=== PATIENT | female | born 1985 | race Caucasian/White ===

== ENCOUNTER 2017-06-11 00:25 | Emergency (ER) | payer OTHER ==
[~2017-06-11] VITALS: Ht 170.2 cm; Wt 74.0 kg
[2017-06-11] MEDS ORDERED: ACETAMINOPHEN 325MG TABLET PO STA (00:56)
[2017-06-11] MEDS ORDERED: ONDANSETRON 4MG ODT PO ONE (01:00)
[2017-06-11 01:13] LABS: BASOPHILS % 0.4 % (0.0-2.0); EOSINOPHILS % 2.7 % (0.0-5.0); HEMATOCRIT. 33.3 % (36.0-48.0); HEMOGLOBIN. 11.5 g/dL (12.0-16.0); LYMPHOCYTES % 32.2 % (20.0-50.0); MEAN CORPUSCULAR VOLUME 93.1 fL (81.0-99.0); MEAN PLATELET VOLUME 8.9 fl (7.4-10.4); MONOCYTES % 9.2 % (2.0-8.0); NEUTROPHILS % 55.5 % (40.0-76.0); PLATELET 210 x1000/uL (130-400); RED BLOOD CELL COUNT 3.58 mill/uL (4.2-5.4); RED CELL DISTRIBUTION WIDTH 13.3 % (11.6-14.6)
[2017-06-11 01:19] LABS: CHLORIDE 105 mEq/L (98-107)
[2017-06-11 01:36] LABS: CARBON DIOXIDE 24 mEq/L (21-32)
[2017-06-11 01:44] LABS: B-HCG QUANTITATIVE 27295 mIU/mL (<3)
[2017-06-11 02:36] VITALS: BP 166/73
== END 2017-06-11 03:39 | disposition home or self-care (01) ==
LOC: ER 00:33
DX: O44.01 Complete placenta previa NOS or without hemorrhage, first trimester (principal); Z3A.14 14 weeks gestation of pregnancy
CPT/HCPCS: 36415; 76801; 80048; 84702; 85025; 86850; 86900; 99285